=== PATIENT | male | born 1990 | race African-American/Black ===

== ENCOUNTER 2020-03-24 10:43 | Emergency (ER) | payer SELFPAY ==
[~2020-03-24] VITALS: Ht 180.3 cm; Wt 64.0 kg
[2020-03-24] MEDS ORDERED: IBUPROFEN 600MG TABLET PO ONE (11:15)
[2020-03-24] MEDS ORDERED: IBUP-2029 PO (11:39)
[2020-03-24 11:49] VITALS: BP 135/84
== END 2020-03-24 14:17 | disposition home or self-care (01) ==
LOC: ER 10:55
DX: R07.81 Pleurodynia (principal)
CPT/HCPCS: 71101; 99283